=== PATIENT | male | born 1950 | race African-American/Black ===

== ENCOUNTER 2019-04-14 09:16 | Emergency (ER) | payer OTHER ==
[~2019-04-14] VITALS: Ht 170.2 cm; Wt 77.6 kg
[2019-04-14] MEDS ORDERED: DULCOLAX STOOL100 M1 PO (09:26)
[2019-04-14] MEDS ORDERED: ACID CONTROLLER20 MG PO (09:27)
[2019-04-14] MEDS ORDERED: PREDNISONE 10 M10 MG PO ×2 (09:27)
[2019-04-14] MEDS ORDERED: ASA81BEC PO (09:27)
[2019-04-14] MEDS ORDERED: TRAMADOL 50 MG50 MG PO (09:28)
[2019-04-14] MEDS ORDERED: LISINOPRIL20 MG PO (09:28)
[2019-04-14] MEDS ORDERED: LOVASTATIN 20 M20 MG PO (09:28)
[2019-04-14] MEDS ORDERED: OMEPRAZOLE 20 M20 M1 PO (09:29)
[2019-04-14 09:46] LABS: ABSOLUTE BASOPHILS 0.1 thou/uL (0.0-0.2); ABSOLUTE EOSINOPHILS 0.1 thou/uL (0.0-0.7); ABSOLUTE LYMPHOCYTES 3.2 thou/uL (0.8-5.3); ABSOLUTE MONOCYTES 0.5 thou/uL (0.0-1.2); ABSOLUTE NEUTROPHILS 3.4 thou/uL (1.6-8.1); BASOPHILS 1.2 %; EOSINOPHILS 1.4 %; HEMATOCRIT 39.9 % (42.0-52.0); HEMOGLOBIN 13.3 gm/dL (14.0-18.0); LYMPHOCYTES 43.4 %; MCH 29.8 pg (26.0-34.0); MCHC 33.4 g/dL (28.0-37.0); MCV 89.2 fL (80.0-100.0); MONOCYTES 7.3 %; MPV 7.8 fl. (7.2-11.1); NUCLEATED RBCS 0 /100WBC; PLATELET COUNT* 333 thou/uL (150-400); POLYS 46.7 %; RBC 4.47 mil/uL (4.50-6.00); RDW-CV 13.9 % (10.5-14.5); WBC 7.4 thou/uL (4.0-11.0)
[2019-04-14 09:52] LABS: URINE BILIRUBIN NEGATIVE (Negative); URINE BLOOD NEGATIVE (Negative); URINE CLARITY CLEAR; URINE COLOR YELLOW; URINE GLUCOSE-RANDOM NEGATIVE (Negative); URINE KETONES NEGATIVE (Negative); URINE LEUKOCYTES-REFLEX NEGATIVE (Negative); URINE NITRITE-REFLEX NEGATIVE (Negative); URINE PROTEIN NEGATIVE (Negative); URINE SPECIFIC GRAVITY <= 1.005 (1.005-1.030); URINE UROBILINOGEN 0.2 E.U./dl (0.2-1.0)
[2019-04-14 09:54] LABS: CALCIUM 8.7 mg/dL (8.5-10.1); CREATININE 1.2 mg/dL (0.6-1.3); POTASSIUM 3.7 mmol/L (3.5-5.1)
[2019-04-14 10:05] LABS: ALBUMIN 3.9 g/dL (3.4-5.0); TOTAL BILIRUBIN 0.4 mg/dL (<0.1-1.0); TOTAL PROTEIN 8.1 g/dL (6.4-8.2)
[2019-04-14] MEDS ORDERED: VERTICALM25 MG PO (11:16)
[2019-04-14 11:43] VITALS: BP 138/81
--- NOTE | 2019-04-14 16:41 | EKG ---
[place] [address] ELECTROCARDIOGRAM REPORT Name: ELISA NIX Room: [facility]#: [id number] Admission: 04/14/19 Attend Phys: Discharge: 04/14/19 Date of : 52 Date of Service: 04/14/19 0933 Report #: [id number] THIS REPORT FOR: cc: Soren Em MD, Thomas P. MD Holkins, John M. MD [facility] ~ THIS REPORT FOR: //name// [facility] ED Test Date: 2019-04-14 Test Time: 09:33:35 Pat Name: ELISA NIX Department: Room: Gender: M [employer]: : 1950 Requested By: Nadira Manzo Order Number: [id number] Sharon MD: Jey Yeboah Measurements Intervals [place] Rate: 77 P: 41 HI: 180 QRS: -53 QRSD: 100 T: 44 QT: 418 QTc: 474 Interpretive Statements Sinus rhythm Left anterior fascicular block Abnormal R-wave progression, late transition Baseline wander in lead(s) I,III,aVL No previous ECG available for comparison Electronically Signed On 04-14-2019 16:40:49 [employer] by Jey Yeboah [email or web address] <ELECTRONICALLY SIGNED> By: Jey Yeboah MD, [facility] 04/14/19 1640 2 2 Jey Yeboah MD, [facility] /EPI
== END 2019-04-14 11:47 | disposition home or self-care (01) ==
LOC: M.ERS 09:16
PROVIDERS: Personal Emergency Response Attendant
DX: R42 Dizziness and giddiness (principal); I10 Essential (primary) hypertension; E78.00 Pure hypercholesterolemia, unspecified